=== PATIENT | male | born 1960 | race Caucasian/White ===

== ENCOUNTER 2022-03-11 15:18 | Emergency (ER) | payer OTHER ==
[~2022-03-11] VITALS: Ht 190.5 cm; Wt 136.1 kg
[2022-03-11] MEDS ORDERED: CYCLOBENZAPRINE HCL 10 MG TAB PO ONE (15:30)
[2022-03-11] MEDS ORDERED: HYDROCODONE/APAP 5MG-325MG TAB PO ONE (15:30)
[2022-03-11] MEDS ORDERED: METHOCARBAMOL750 MG PO (16:53)
[2022-03-11] MEDS ORDERED: IBUPROFEN600 MG PO (16:53)
== END 2022-03-11 17:15 | disposition home or self-care (01) ==
LOC: ER 15:28
DX: M54.50 Low back pain, unspecified (principal); I10 Essential (primary) hypertension; E11.9 Type 2 diabetes mellitus without complications; G62.9 Polyneuropathy, unspecified
CPT/HCPCS: 72131; 99284